=== PATIENT | female | born 1950 | race Caucasian/White ===

== ENCOUNTER 2019-06-09 23:01 | Emergency (ER) | payer MEDICARE, MEDICAID ==
[~2019-06-09] VITALS: Ht 160 cm; Wt 118.2 kg
[2019-06-09] MEDS ORDERED: pantoprazole 40 MG vial IV ONE (23:20)
[2019-06-09] MEDS ORDERED: ondansetron/PF 4mg/2ml inj IV ONE ×2 (23:20→23:55)
[2019-06-09] MEDS ORDERED: famotidine/PF 10 mg/ml inj IV ONE (23:20)
[2019-06-09 23:32] LABS: BASOPHILS # (AUTO) 0.1 X10'3 (0-0.2); BASOPHILS % (AUTO) 0.7 % (0-1); EOSINOPHILS # (AUTO) 0.6 X10'3 (0-0.9); EOSINOPHILS % (AUTO) 4.6 % (0-6); HEMATOCRIT 41.2 % (35.0-45.0); LYMPHOCYTES # (AUTO) 2.6 X10'3 (1.1-4.8); LYMPHOCYTES % (AUTO) 20.1 % (21-51); MEAN CORPUSCULAR HEMOGLOBIN 30.4 PG (27.0-31.0); MEAN CORPUSCULAR HGB CONC 33.9 g/dL (33.0-36.5); MEAN CORPUSCULAR VOLUME 89.8 FL (78-98); MONOCYTES # (AUTO) 0.7 X10'3 (0-0.9); MONOCYTES % (AUTO) 5.4 % (2-12); NEUTROPHILS % (AUTO) 69.2 % (42-75); PLATELET COUNT 229 X10'3 (140-440); RED BLOOD COUNT 4.59 X10'6 (4.20-5.60); RED CELL DISTRIBUTION WIDTH 14.1 % (11.5-14.5)
[2019-06-09 23:43] LABS: ALANINE AMINOTRANSFERASE 38 U/L (12-78); ALBUMIN 4.5 G/DL (3.4-5.0); ALBUMIN/GLOBULIN RATIO 1.1 (1.1-1.5); ALKALINE PHOSPHATASE 89 IU/L (46-116); ANION GAP 7 (8-16); ASPARTATE AMINO TRANSFERASE 28 U/L (10-37); BILIRUBIN,TOTAL 0.6 MG/DL (0.1-1.0); BLOOD UREA NITROGEN 21 MG/DL (7-18); CHLORIDE 102 MMOL/L (99-107); GLUCOSE 114 MG/DL (70-104); POTASSIUM 4.7 MMOL/L (3.5-5.1); SODIUM 139 MMOL/L (135-145); TOTAL CARBON DIOXIDE 29.8 MMOL/L (24-32); TOTAL PROTEIN 8.5 G/DL (6.4-8.2); eGFR 55 ML/MIN
[2019-06-09 23:44] LABS: LIPASE 129 U/L (73-393)
[2019-06-09 23:47] LABS: CLARITY,URINE CLEAR (Clear); COLOR,URINE YELLOW (Yellow); GLUCOSE, URINE NEGATIVE (Neg); KETONES,URINE NEGATIVE (Neg); LEUKOCYTE ESTERASE ,URINE NEGATIVE (Neg); NITRITES, URINE NEGATIVE (Neg); OCCULT BLOOD,URINE NEGATIVE (Neg); PROTEIN,URINE NEGATIVE (Neg); UROBILINOGEN,URINE 0.2 E.U/dL (0.2-1.0)
[2019-06-09 23:53] LABS: UA COLLECTION TYPE CLN CATCH MIDSTREAM
[2019-06-09] MEDS ORDERED: morphine 4 MG/ML inj SYRINge IV PRN (23:55)
[2019-06-10] MEDS ORDERED: ONDA4TAB6 PO (00:02)
[2019-06-10] MEDS ORDERED: OMEP20CA11 PO (00:02)
[2019-06-10] MEDS ORDERED: FAMO20TA44 PO (00:02)
[2019-06-10] MEDS ORDERED: SUCR1TAB34 PO (00:02)
[2019-06-10] MEDS ORDERED: mag hydrox/Alum hydrox/simeth 30ml oral suspension PO ONE (00:05)
[2019-06-10] MEDS ORDERED: sucralfate 1gm/10ml UD suspension PO ONE (00:05)
[2019-06-10] MEDS ORDERED: sucralfate 1gm/10ml UD suspension PO SCH (00:05)
[2019-06-10] MEDS ORDERED: LIDOcaine Viscous 15ml cup MM PRN (00:05)
[2019-06-10 00:45] VITALS: BP 119/62
== END 2019-06-10 00:25 | disposition home or self-care (01) ==
LOC: ER 23:01
DX: N18.9 Chronic kidney disease, unspecified (principal); E11.65 Type 2 diabetes mellitus with hyperglycemia; E11.22 Type 2 diabetes mellitus with diabetic chronic kidney disease; K26.9 Duodenal ulcer, unspecified as acute or chronic, without hemorrhage or perforation; I25.10 Atherosclerotic heart disease of native coronary artery without angina pectoris; I50.9 Heart failure, unspecified; M19.90 Unspecified osteoarthritis, unspecified site; Z95.1 Presence of aortocoronary bypass graft; Z98.890 Other specified postprocedural states; Z91.040 Latex allergy status; Z79.899 Other long term (current) drug therapy
CPT/HCPCS: 36415; 74176; 80053; 81003; 83690; 84484; 85025; 93005; 96374; 96375; 96376; 99284; C9113; J2270; J2405; J3490

== ENCOUNTER 2019-09-05 02:16 | Emergency (ER) | payer MEDICARE, MEDICAID ==
[~2019-09-05] VITALS: Ht 160 cm; Wt 130.0 kg
[~2019-09-05 02:16] MED LIST: FAMO20TA44 PO; OMEP20CA15 PO; ONDA4TAB6 PO; SUCR1TAB34 PO
[2019-09-05] MEDS ORDERED: acetaminophen 325mg tablet PO ONE (02:35)
[2019-09-05 02:37] VITALS: BP 169/74
[2019-09-05] MEDS ORDERED: normal saline 1000ML IV soln IVB ONE (03:15)
[2019-09-05] MEDS ORDERED: methylPREDNISolone sod succ 125mg/2ml vial IV ONE (03:15)
[2019-09-05] MEDS ORDERED: albuterol 2.5 MG/3 ML nebule NEB ONE (03:15)
[2019-09-05 03:17] LABS: ALANINE AMINOTRANSFERASE 27 U/L (12-78); ALBUMIN 3.8 G/DL (3.4-5.0); ALKALINE PHOSPHATASE 82 IU/L (46-116); ANION GAP 8 (8-16); ASPARTATE AMINO TRANSFERASE 19 U/L (10-37); BILIRUBIN,TOTAL 0.6 MG/DL (0.1-1.0); BLOOD UREA NITROGEN 15 MG/DL (7-18); BUN/CREATININE RATIO 14.2 (6.6-38.0); CALCIUM 9.1 MG/DL (8.5-10.1); CHLORIDE 101 MMOL/L (99-107); CREATININE 1.06 MG/DL (0.40-0.90); GLUCOSE 121 MG/DL (70-104); POTASSIUM 4.2 MMOL/L (3.5-5.1); SODIUM 137 MMOL/L (135-145); TOTAL CARBON DIOXIDE 27.8 MMOL/L (24-32); TOTAL PROTEIN 7.6 G/DL (6.4-8.2); eGFR 52 ML/MIN
[2019-09-05 03:23] LABS: BASOPHILS % (AUTO) 0.6 % (0-1); EOSINOPHILS # (AUTO) 0.8 X10'3 (0-0.9); EOSINOPHILS % (AUTO) 9.2 % (0-6); HEMATOCRIT 36.4 % (35.0-45.0); HEMOGLOBIN 12.3 g/dl (12.0-16.0); LYMPHOCYTES # (AUTO) 1.5 X10'3 (1.1-4.8); LYMPHOCYTES % (AUTO) 18.1 % (21-51); MEAN CORPUSCULAR HEMOGLOBIN 30.2 PG (27.0-31.0); MEAN CORPUSCULAR HGB CONC 33.7 g/dL (33.0-36.5); MEAN CORPUSCULAR VOLUME 89.5 FL (78-98); MEAN PLATELET VOLUME 9.1 FL (7.4-10.4); MONOCYTES # (AUTO) 0.9 X10'3 (0-0.9); MONOCYTES % (AUTO) 10.4 % (2-12); NEUTROPHILS # (AUTO) 5.1 X10'3 (1.8-7.7); NEUTROPHILS % (AUTO) 61.7 % (42-75); PLATELET COUNT 175 X10'3 (140-440); RED BLOOD COUNT 4.07 X10'6 (4.20-5.60); RED CELL DISTRIBUTION WIDTH 14.4 % (11.5-14.5); WHITE BLOOD COUNT 8.2 X10'3 (4.5-11.0)
[2019-09-05] MEDS ORDERED: PRED20TA PO (04:21)
== END 2019-09-05 04:32 | disposition home or self-care (01) ==
LOC: ER 02:17
DX: J45.901 Unspecified asthma with (acute) exacerbation (principal); B34.9 Viral infection, unspecified; J11.1 Influenza due to unidentified influenza virus with other respiratory manifestations; I25.10 Atherosclerotic heart disease of native coronary artery without angina pectoris; I50.9 Heart failure, unspecified; E11.9 Type 2 diabetes mellitus without complications; M19.90 Unspecified osteoarthritis, unspecified site; Z87.891 Personal history of nicotine dependence; Z98.890 Other specified postprocedural states; Z95.1 Presence of aortocoronary bypass graft; Z91.040 Latex allergy status; Z79.899 Other long term (current) drug therapy
CPT/HCPCS: 36415; 71045; 80053; 83605; 84145; 84484; 85025; 87040; 87502; 87503; 93005; 94640; 96374; 99285; J2930; J7030; 94760

== ENCOUNTER 2021-01-23 10:19 | Day surgery (SDC) | payer MEDICARE, MEDICAID ==
[2021-01-18 13:06] LABS: BASOPHILS % (AUTO) 0.5 % (0-1); EOSINOPHILS # (AUTO) 0.5 X10'3 (0-0.9); EOSINOPHILS % (AUTO) 6.1 % (0-6); HEMATOCRIT 38.2 % (35.0-45.0); HEMOGLOBIN 12.6 g/dl (12.0-16.0); LYMPHOCYTES # (AUTO) 2.5 X10'3 (1.1-4.8); LYMPHOCYTES % (AUTO) 28.2 % (21-51); MEAN CORPUSCULAR HEMOGLOBIN 31.2 PG (27.0-31.0); MEAN CORPUSCULAR VOLUME 94.5 FL (78-98); MEAN PLATELET VOLUME 8.7 FL (7.4-10.4); MONOCYTES # (AUTO) 0.7 X10'3 (0-0.9); MONOCYTES % (AUTO) 7.4 % (2-12); NEUTROPHILS # (AUTO) 5.1 X10'3 (1.8-7.7); NEUTROPHILS % (AUTO) 57.8 % (42-75); PLATELET COUNT 211 X10'3 (140-440); RED BLOOD COUNT 4.04 X10'6 (4.20-5.60); RED CELL DISTRIBUTION WIDTH 13.4 % (11.5-14.5); WHITE BLOOD COUNT 8.9 X10'3 (4.5-11.0)
[2021-01-18 13:12] LABS: ALBUMIN 3.8 G/DL (3.4-5.0); ANION GAP 10 (8-16); BLOOD UREA NITROGEN 16 MG/DL (7-18); BUN/CREATININE RATIO 15.2 (6.6-38.0); CALCIUM 9.4 MG/DL (8.5-10.1); CHLORIDE 104 MMOL/L (99-107); CREATININE 1.05 MG/DL (0.40-0.90); GLUCOSE 193 MG/DL (70-104); POTASSIUM 4.4 MMOL/L (3.5-5.1); SODIUM 139 MMOL/L (135-145); TOTAL CARBON DIOXIDE 25.2 MMOL/L (24-32); eGFR 52 ML/MIN
[2021-01-18 13:14] LABS: PARTIAL THROMBOPLASTIN TIME 35 SECONDS (22-32)
[2021-01-23] VITALS (10 sets, daily range): BP systolic 110–147; BP diastolic 65–91
[~2021-01-23] VITALS: Ht 160 cm; Wt 131.0 kg
[2021-01-23] MEDS ORDERED: ALBU18HF2 (10:51)
[2021-01-23] MEDS ORDERED: TRIA15CR61 (10:51)
[2021-01-23] MEDS ORDERED: SOTA80TA73 PO (10:51)
[2021-01-23] MEDS ORDERED: LISI20TA28 PO (10:51)
[2021-01-23] MEDS ORDERED: MULT-1085 PO (10:51)
[2021-01-23] MEDS ORDERED: FURO20TA4 PO (10:51)
[2021-01-23] MEDS ORDERED: ASPI-1265 PO (10:51)
[2021-01-23] MEDS ORDERED: APIX5TAB3 PO (10:51)
[2021-01-23] MEDS ORDERED: SIMV-42 PO (10:51)
[2021-01-23] MEDS ORDERED: ACET-890 PO (10:51)
[2021-01-23] MEDS ORDERED: GLIP1TAB6 PO (10:51)
[2021-01-23] MEDS ORDERED: POTA99TA21 PO (10:51)
[2021-01-23] MEDS ORDERED: fentaNYL/PF 50MCG/1 ML 2ML syringe IV ONE (10:55)
[2021-01-23] MEDS ORDERED: normal saline 1000ml 1,000 ML IV SCH (10:55)
[2021-01-23] MEDS ORDERED: MIDAZolam 1mg/ml 10ml vial IV ONE (10:55)
== END 2021-01-23 15:45 | disposition home or self-care (01) ==
LOC: SSTAY O 10:19
PROVIDERS: ATTEND Internal Medicine Interventional Cardiology
DX: I48.92 Unspecified atrial flutter (principal); I10 Essential (primary) hypertension; E11.9 Type 2 diabetes mellitus without complications; I25.10 Atherosclerotic heart disease of native coronary artery without angina pectoris; I45.10 Unspecified right bundle-branch block; J45.909 Unspecified asthma, uncomplicated; Z79.899 Other long term (current) drug therapy; Z79.84 Long term (current) use of oral hypoglycemic drugs; Z79.01 Long term (current) use of anticoagulants; Z79.82 Long term (current) use of aspirin; Z95.1 Presence of aortocoronary bypass graft; Z91.040 Latex allergy status
CPT/HCPCS: 36415; 80048; 82948; 85025; 85610; 85730; 92960; 93005; 94799; J2250; J3010; J7030

== ENCOUNTER 2021-03-02 04:04 | Emergency (ER) | payer MEDICARE, MEDICAID ==
[~2021-03-02] VITALS: Ht 160 cm; Wt 125.0 kg
[~2021-03-02 04:04] MED LIST changes: +ACET-890 PO; +ALBU18HF2; +APIX5TAB3 PO; +ASPI-1265 PO; -FAMO20TA44 PO; +FURO20TA4 PO; +GLIP1TAB6 PO; +LISI20TA28 PO; +MULT-1085 PO; -OMEP20CA15 PO; -ONDA4TAB6 PO; +POTA99TA21 PO; +SIMV-42 PO; +SOTA80TA73 PO; -SUCR1TAB34 PO; +TRIA15CR61
[2021-03-02 04:30] LABS: BASOPHILS % (AUTO) 0.3 % (0-1); EOSINOPHILS % (AUTO) 0 % (0-6); HEMATOCRIT 37.9 % (35.0-45.0); HEMOGLOBIN 12.7 g/dl (12.0-16.0); LYMPHOCYTES # (AUTO) 0.9 X10'3 (1.1-4.8); LYMPHOCYTES % (AUTO) 26.3 % (21-51); MEAN CORPUSCULAR HEMOGLOBIN 29.9 PG (27.0-31.0); MEAN CORPUSCULAR HGB CONC 33.5 g/dL (33.0-36.5); MEAN CORPUSCULAR VOLUME 89.3 FL (78-98); MEAN PLATELET VOLUME 10.3 FL (7.4-10.4); MONOCYTES # (AUTO) 0.4 X10'3 (0-0.9); MONOCYTES % (AUTO) 10.1 % (2-12); NEUTROPHILS # (AUTO) 2.2 X10'3 (1.8-7.7); NEUTROPHILS % (AUTO) 63.3 % (42-75); PLATELET COUNT 107 X10'3 (140-440); RED BLOOD COUNT 4.24 X10'6 (4.20-5.60); RED CELL DISTRIBUTION WIDTH 13.4 % (11.5-14.5); WHITE BLOOD COUNT 3.5 X10'3 (4.5-11.0)
[2021-03-02] MEDS ORDERED: dexamethasone sod phosphate 10mg/ml inj IV STA (04:41)
[2021-03-02] MEDS ORDERED: CASIRIVIMAB (REGN10933) 1332MG 600 MG, IMDEVIMAB (REGN10987) 1332mg 600 MG in normal sa... IV ONE (04:45)
[2021-03-02 05:06] LABS: ALANINE AMINOTRANSFERASE 37 U/L (12-78); ALBUMIN 3.3 G/DL (3.4-5.0); ALBUMIN/GLOBULIN RATIO 0.9 (1.1-1.5); ALKALINE PHOSPHATASE 67 IU/L (46-116); ANION GAP 8 (8-16); ASPARTATE AMINO TRANSFERASE 54 U/L (10-37); BILIRUBIN,TOTAL 0.4 MG/DL (0.1-1.0); BLOOD UREA NITROGEN 15 MG/DL (7-18); CHLORIDE 99 MMOL/L (99-107); CREATININE 1.15 MG/DL (0.40-0.90); GLUCOSE 202 MG/DL (70-104); MAGNESIUM 1.8 MG/DL (1.5-2.4); SODIUM 131 MMOL/L (135-145); TOTAL CARBON DIOXIDE 23.9 MMOL/L (24-32); TOTAL PROTEIN 6.9 G/DL (6.4-8.2); eGFR 47 ML/MIN
[2021-03-02 05:10] LABS: POTASSIUM 4.5 MMOL/L (3.5-5.1)
--- NOTE | 2021-03-02 05:36 | NUR ---
regeneron approved by ID. pharmacy notified. waiting for med to be mixed.
[2021-03-02] MEDS ORDERED: DEXA6TAB6 PO (06:20)
[2021-03-02] MEDS ORDERED: famotidine/PF 10 mg/ml inj IV PRN (06:40)
[2021-03-02] MEDS ORDERED: epiNEPHrine 1 mg/ml inj IM PRN (06:40)
[2021-03-02] MEDS ORDERED: methylPREDNISolone sod succ 125mg/2ml vial IV ONE (06:40)
[2021-03-02] MEDS ORDERED: diphenhydrAMINE 50 mg/ml inj IV PRN (06:40)
[2021-03-02] MEDS ORDERED: methylPREDNISolone sod succ 125mg/2ml vial IV PRN (06:50)
--- NOTE | 2021-03-02 08:08 | NUR ---
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
--- NOTE | 2021-03-02 08:27 | NUR ---
pt granddaughter manish called. She knows meghan is covid positive. Pt to stay home and quarintine.
[2021-03-02 09:34] VITALS: BP 117/65
== END 2021-03-02 09:00 | disposition home or self-care (01) ==
LOC: ER 04:04
DX: U07.1 COVID-19 (principal); R06.02 Shortness of breath; R19.7 Diarrhea, unspecified; I48.91 Unspecified atrial fibrillation; I25.10 Atherosclerotic heart disease of native coronary artery without angina pectoris; I11.0 Hypertensive heart disease with heart failure; I50.9 Heart failure, unspecified; E11.9 Type 2 diabetes mellitus without complications; M19.90 Unspecified osteoarthritis, unspecified site; Z87.440 Personal history of urinary (tract) infections; Z98.890 Other specified postprocedural states; Z91.040 Latex allergy status; Z79.82 Long term (current) use of aspirin; Z79.899 Other long term (current) drug therapy
CPT/HCPCS: 36415; 71045; 80053; 83605; 83735; 84145; 85025; 87635; 93005; 96374; 99285; C9803; J1100; M0243; Q0243

== ENCOUNTER 2021-03-06 14:30 | Emergency (ER) | payer MEDICARE, MEDICAID ==
[~2021-03-06] VITALS: Ht 160 cm; Wt 122.7 kg
[~2021-03-06 14:30] MED LIST changes: +DEXA6TAB6 PO
[2021-03-06 14:57] VITALS: BP 168/69
[2021-03-06 15:30] LABS: BASOPHILS % (AUTO) 0.3 % (0-1); EOSINOPHILS % (AUTO) 0 % (0-6); HEMATOCRIT 39.3 % (35.0-45.0); HEMOGLOBIN 12.9 g/dl (12.0-16.0); LYMPHOCYTES # (AUTO) 1.4 X10'3 (1.1-4.8); LYMPHOCYTES % (AUTO) 16.2 % (21-51); MEAN CORPUSCULAR HEMOGLOBIN 29.8 PG (27.0-31.0); MEAN CORPUSCULAR HGB CONC 32.9 g/dL (33.0-36.5); MEAN CORPUSCULAR VOLUME 90.7 FL (78-98); MEAN PLATELET VOLUME 9.9 FL (7.4-10.4); MONOCYTES % (AUTO) 10.8 % (2-12); NEUTROPHILS # (AUTO) 6.4 X10'3 (1.8-7.7); NEUTROPHILS % (AUTO) 72.7 % (42-75); PLATELET COUNT 237 X10'3 (140-440); RED BLOOD COUNT 4.34 X10'6 (4.20-5.60); RED CELL DISTRIBUTION WIDTH 13.4 % (11.5-14.5); WHITE BLOOD COUNT 8.8 X10'3 (4.5-11.0)
== END 2021-03-06 16:55 | disposition home or self-care (01) ==
LOC: ER 14:30
DX: U07.1 COVID-19 (principal); J45.909 Unspecified asthma, uncomplicated; I11.0 Hypertensive heart disease with heart failure; I50.9 Heart failure, unspecified; I48.91 Unspecified atrial fibrillation; I25.10 Atherosclerotic heart disease of native coronary artery without angina pectoris; E11.9 Type 2 diabetes mellitus without complications; M19.90 Unspecified osteoarthritis, unspecified site; Z87.440 Personal history of urinary (tract) infections; Z95.5 Presence of coronary angioplasty implant and graft; Z91.040 Latex allergy status; Z79.899 Other long term (current) drug therapy
CPT/HCPCS: 36415; 71045; 85025; 99284

== ENCOUNTER 2022-04-05 22:18 | Emergency (ER) | payer MEDICARE, MEDICAID ==
[~2022-04-05] VITALS: Ht 160 cm; Wt 127.3 kg
[~2022-04-05 22:18] MED LIST changes: -POTA99TA21 PO; +POTA99TA26 PO
[2022-04-05] MEDS ORDERED: diltiazem 5mg/ml 5ml inj. IV ONE ×2 (22:55→22:56)
[2022-04-05 23:02] LABS: BASOPHILS % (AUTO) 0.4 % (0-1); EOSINOPHILS % (AUTO) 0.2 % (0-6); HEMATOCRIT 35.2 % (35.0-45.0); HEMOGLOBIN 11.7 g/dl (12.0-16.0); LYMPHOCYTES # (AUTO) 1.4 X10'3 (1.1-4.8); LYMPHOCYTES % (AUTO) 14.9 % (21-51); MEAN CORPUSCULAR HEMOGLOBIN 30.8 PG (27.0-31.0); MEAN CORPUSCULAR HGB CONC 33.1 g/dL (33.0-36.5); MEAN CORPUSCULAR VOLUME 92.9 FL (78-98); MEAN PLATELET VOLUME 9.1 FL (7.4-10.4); MONOCYTES # (AUTO) 0.4 X10'3 (0-0.9); MONOCYTES % (AUTO) 4.5 % (2-12); NEUTROPHILS # (AUTO) 7.6 X10'3 (1.8-7.7); PLATELET COUNT 208 X10'3 (140-440); RED BLOOD COUNT 3.79 X10'6 (4.20-5.60); RED CELL DISTRIBUTION WIDTH 13.8 % (11.5-14.5); WHITE BLOOD COUNT 9.4 X10'3 (4.5-11.0)
[2022-04-05] MEDS: normal saline 500ml IV soln 500 ML IV SCH ×2 (23:03→23:57)
[2022-04-05] MEDS ORDERED: FLUT50BL INH (23:12)
[2022-04-05] MEDS ORDERED: SOTA80TA73 PO (23:13)
[2022-04-05] MEDS ORDERED: FAMO20TA8 PO (23:15)
[2022-04-05] MEDS ORDERED: SUCR1TAB PO (23:15)
[2022-04-05 23:16] LABS: ALANINE AMINOTRANSFERASE 159 U/L (12-78); ALBUMIN 3.9 G/DL (3.4-5.0); ALBUMIN/GLOBULIN RATIO 1.1 (1.1-1.5); ALKALINE PHOSPHATASE 103 IU/L (46-116); ANION GAP 13 (8-16); ASPARTATE AMINO TRANSFERASE 149 U/L (10-37); BILIRUBIN,TOTAL 0.7 MG/DL (0.1-1.0); BLOOD UREA NITROGEN 27 MG/DL (7-18); BUN/CREATININE RATIO 20.3 (6.6-38.0); CALCIUM 9.8 MG/DL (8.5-10.1); CHLORIDE 97 MMOL/L (99-107); CREATININE 1.33 MG/DL (0.40-0.90); GLUCOSE 422 MG/DL (70-104); POTASSIUM 4.9 MMOL/L (3.5-5.1); SODIUM 133 MMOL/L (135-145); TOTAL CARBON DIOXIDE 23.4 MMOL/L (24-32); TOTAL PROTEIN 7.6 G/DL (6.4-8.2); eGFR 39 ML/MIN
[2022-04-05] MEDS ORDERED: ADV50100 IH (23:16)
[2022-04-05] MEDS ORDERED: ALB0.5UD IH (23:18)
[2022-04-05] MEDS ORDERED: prednisone PO (23:19)
[2022-04-06] MEDS ORDERED: methylPREDNISolone sod succ 125mg/2ml vial IV ONE (01:00)
[2022-04-06] MEDS: normal saline 500ml IV soln 500 ML IV SCH ×2 (01:23→01:56)
[2022-04-06 01:56] VITALS: BP 153/87
[2022-04-06] MEDS ORDERED: LOP12.5T PO (02:30)
== END 2022-04-06 03:20 | disposition home or self-care (01) ==
LOC: ER 22:18
DX: I48.91 Unspecified atrial fibrillation (principal); R06.02 Shortness of breath; R50.9 Fever, unspecified; R51.9 Headache, unspecified; I25.10 Atherosclerotic heart disease of native coronary artery without angina pectoris; I11.0 Hypertensive heart disease with heart failure; I50.9 Heart failure, unspecified; J45.909 Unspecified asthma, uncomplicated; E11.9 Type 2 diabetes mellitus without complications; M19.90 Unspecified osteoarthritis, unspecified site; Z87.440 Personal history of urinary (tract) infections; Z98.890 Other specified postprocedural states; Z91.040 Latex allergy status; Z79.82 Long term (current) use of aspirin; Z79.899 Other long term (current) drug therapy
CPT/HCPCS: 36415; 71045; 80053; 83880; 84145; 84484; 85025; 93005; 96374; 99285; J3490; J7040